=== PATIENT | male | born 1945 | race Caucasian/White ===

== ENCOUNTER 2018-10-24 21:25 | Inpatient (IN) | payer MEDICARE, OTHER ==
[2018-10-24 22:00] LABS: % BASOPHILS 0.1 % (0.0-2.0); % EOSINOPHILS 3.5 % (0.0-5.0); % LYMPHOCYTES 26.9 % (20.0-50.0); % MONOCYTES 5.5 % (2.0-10.0); EOSINOPHILE ABSOLUTE 0.3 Th/cmm (0.1-0.4); HEMATOCRIT 39.3 % (41.0-60); HEMOGLOBIN 13.1 gm/dL (12-16); MEAN CORPUSCULAR HGB CONC 33.4 pg (28.0-36.0); MONOCYTE ABSOLUTE 0.4 Th/cmm (0.3-1.0); NEUTROPHILE ABSOLUTE 4.8 Th/cmm (1.8-8.0); PLATELET COUNT 238 Th/cmm (150-400); RED BLOOD COUNT 4.37 Mil/cmm (3.80-5.80); RED CELL DISTRIBUTION WIDTH 13.2 % (11.5-20.0); WHITE BLOOD COUNT 7.5 Th/cmm (4.8-10.8)
[2018-10-24 22:13] LABS: ANION GAP 12.4 (7.0-16.0); BUN - UREA NITROGEN 19 mg/dL (7-25); CALCIUM SERUM 9.5 mg/dL (8.6-10.3); CARBON DIOXIDE 25.7 mEq/L (21.0-31.0); CHLORIDE 101 mEq/L (98-107); CREATININE - SERUM 0.7 mg/dL (0.7-1.3); GLUCOSE 125 mg/dL (70-105); POTASSIUM SERUM 4.1 mEq/L (3.5-5.1); SODIUM SERUM 135 mEq/L (136-145)
[2018-10-24 22:31] LABS: ACETAMINOPHEN < 10.0 ug/mL (10.0-30.0)
--- NOTE | 2018-10-24 23:36 | ED Physician Chart ---
ED Chief Complaint/HPI - Patient Information Date Seen:: 10/24/18 Time Seen:: 23:32 Chief Complaint:: agitation geropsych History of Present Illness:: 73 yr old male with hx of htn dm cva with agitation for lanny psych pt awake alert denies any complaints Allergies:: Allergies Allergy/AdvReac Type Severity Reaction Status Date / Time No Known Allergies Allergy Verified 10/24/18 21:39 Vitals:: Vital Signs - 8 hr 10/24/18 21:27 Temp 98 F HR 76 RR 16 BP 142/78 O2 Sat % 98 ED Review of Systems - Review of Systems General/Constitutional: No fever, No chills, No weight loss, No weakness, No diaphoresis, No edema, No loss of appetite Skin: No skin lesions, No rash, No bruising Head: No headache, No light-headedness Eyes: No loss of vision, No pain, No diplopia ENT: No earache, No nasal drainage, No sore throat, No tinnitus Neck: No neck pain, No swelling, No thyromegaly, No stiffness, No mass noted Cardio Vascular: No chest pain, No palpitations, No PND, No orthopnea, No edema Pulmonary: No SOB, No cough, No sputum, No wheezing GI: No nausea, No vomiting, No diarrhea, No pain, No melena, No hematochezia, No constipation, No hematemesis G/U: No dysuria, No frequency, No hematuria Musculoskeletal: No bone or joint pain, No back pain, No muscle pain Endocrine: No polyuria, No polydipsia Psychiatric: No prior psych history, No depression, No anxiety, No suicidal ideation Hematopoietic: No bruising, No lymphadenopathy Allergic/Immuno: No urticaria, No angioedema Neurological: No syncope, No focal symptoms, No weakness, No paresthesia, No headache, No seizure, No dizziness, No confusion, No vertigo ED Past Medical History - Past Medical History Past Medical History: HTN, DM, Asthma/COPD, PUD/GERD, Dementia Family Medical History - Family Member Mother History Unknown: Yes ED Physical Exam - Physical Examination General/Constitutional: Awake, Well-developed, well-nourished, Alert, No distress, GCS 15, Non-toxic appearing Head: Atraumatic Eyes: Lids, conjuctiva normal, PERRL, EOMI Skin: Nl inspection, No rash, No skin lesions, No ecchymosis, Well hydrated, No lymphadenopathy ENMT: External ears, nose nl, Nasal exam nl, Lips, teeth, gums nl Neck: Nontender, Full ROM w/o pain, No JVD, No nuchal rigidity, No bruit, No mass, No stridor Respiratory: Nl effort/Exclusion, Clear to Auscultation, No Wheeze/Rhonchi/Rales Cardio Vascular: RRR, No murmur, gallop, rubs, NL S1 S2 GI: No tenderness/rebounding/guarding, No organomegaly, No hernia, Normal BS's, Nondistended, No mass/bruits, No McBurney tenderness : No CVA tenderness Extremities: No tenderness or effusion, No edema, Normal digits & nails Other Extremities comments:: lt hemiparesis Neuro/Psych: Alert/oriented Other Neuro/Psych comments:: lt hemiparesis Misc: Normal back, No paraspinal tenderness ED Labs/Radiology/EKG Results - Lab Results Results: Laboratory Tests 10/24/18 10/24/18 10/24/18 21:55 21:55 21:55 WBC 7.5 RBC 4.37 Hgb 13.1 Hct 39.3 L MCV 90.0 MCH 30.0 MCHC Differential 33.4 RDW 13.2 Plt Count 238 MPV 7.4 Neutrophils % 64.0 Lymphocytes % 26.9 Monocytes % 5.5 Eosinophils % 3.5 Basophils % 0.1 Sodium 135 L Potassium 4.1 Chloride 101 Carbon Dioxide 25.7 Anion Gap 12.4 BUN 19 Creatinine 0.7 Est GFR ( Amer) TNP Est GFR (Non-Af Amer) TNP BUN/Creatinine Ratio 27.1 Glucose 125 H Calcium 9.5 Troponin I 0.01 Salicylates Acetaminophen Ethyl Alcohol 10/24/18 21:55 WBC RBC Hgb Hct MCV MCH MCHC Differential RDW Plt Count MPV Neutrophils % Lymphocytes % Monocytes % Eosinophils % Basophils % Sodium Potassium Chloride Carbon Dioxide Anion Gap BUN Creatinine Est GFR ( Amer) Est GFR (Non-Af Amer) BUN/Creatinine Ratio Glucose Calcium Troponin I Salicylates < 25.0 L Acetaminophen < 10.0 L Ethyl Alcohol < 10 ED Assessment - Assessment General Assessment: lt hemiparesis agitation lanny psych ED Septic Shock - . Is Septic Shock (SBP<90, OR Lactate>4 mmol\L) present?: No - <6hrs of presentation: Vital Signs: Vital Signs - 8 hr 10/24/18 21:27 Temp 98 F HR 76 RR 16 BP 142/78 O2 Sat % 98 ED Reassessment (Disposition) - Reassessment Reassessment:: agitation geropsych - Diagnosis Diagnosis:: as above - Patient Disposition Discharge/Transfer:: Acute Care w/in this hosp Admitted to:: [facility] Condition at Disposition:: Stable
[2018-10-25 00:12] VITALS: BP 132/79
[2018-10-25] MEDS ORDERED: Maalox 30 mL Cup PO PRN (00:15)
[2018-10-25] MEDS ORDERED: Magnesium Hydroxide (MOM) 30 mL UDC PO PRN (00:15)
[2018-10-25 06:06] LABS: CHOLESTEROL 153 mg/dL (<200); HDL -HIGH DENSITY LIPOPROTEIN 35 mg/dL (23-92); TRIGLYCERIDES 158 mg/dL (<150)
[2018-10-25] MEDS ORDERED: Acetaminophen 500 MG TAB PO PRN (06:37)
[2018-10-25] MEDS: Multivitamin Tab PO SCH (08:30)
[2018-10-25] MEDS ORDERED: SODIUM CHLORIDE PO SCH (09:00)
[2018-10-25] MEDS ORDERED: Non-Formulary Item 1 EA (Metformin Hcl [Metformin Hcl] 1,000 MG) PO SCH (09:00)
[2018-10-25] MEDS ORDERED: [UNRECOGNIZED DRUG - OTHER] PO SCH (09:00)
[2018-10-25] MEDS ORDERED: Dextrose 50% 50 mL Abboject IVP PRN (09:27)
[2018-10-25] MEDS ORDERED: GLUCAGON HCl 1 MG KIT IM PRN (09:27)
--- NOTE | 2018-10-25 11:01 | History & Physical ---
ADMIT DATE: 10/25/[address] Patel. CHIEF COMPLAINT: Agitation. HISTORY OF PRESENT ILLNESS: This is a 73-year-old male who is admitted here to the Geropsych Unit due to 1-[facility] the [facility]. PAST MEDICAL HISTORY: Hypertension, diabetes, dyslipidemia, COPD, GERD, and dementia. FAMILY HISTORY: Noncontributory. SOCIAL HISTORY: The patient is a prison resident. REVIEW OF SYSTEMS: GENERAL: Denies any fever and chills. CARDIOVASCULAR: Denies chest pain. RESPIRATORY: Denies shortness of breath. GASTROINTESTINAL: Denies nausea, vomiting, or abdominal pain. GENITOURINARY: Denies increased frequency. NEUROLOGIC: No headaches, seizures or syncope. All systems reviewed and are negative. PHYSICAL EXAMINATION: GENERAL: The patient is an elderly male, awake, alert with confusion, no apparent distress. VITAL SIGNS: Temperature 98.2, heart rate 76, blood pressure 132/79, respirations 19, O2 96%. HEENT: Head; normocephalic, atraumatic. NECK: Supple. No mass. LUNGS: Clear bilaterally. ABDOMEN: Soft, nontender. LABORATORY DATA: WBC 7.5, H and H 13.1 and 39.3, platelet of 238. Sodium 135, potassium 4.1, chloride 101, BUN 19, creatinine 0.7. ASSESSMENT: Agitation, hypertension, diabetes, dyslipidemia, COPD, GERD, and dementia. PLAN: We will continue the patient's home medications, sliding scale per protocol. Fall precautions will be initiated. We will continue to monitor this patient. [facility]# [id number]
[2018-10-25] MEDS: INSULIN LISPRO SLIDING SCALE 100 UNITS/ML UNIT SUBQ SCH ×3 (11:20→21:22)
[2018-10-26] MEDS: INSULIN LISPRO SLIDING SCALE 100 UNITS/ML UNIT SUBQ SCH ×4 (06:31→20:25)
[2018-10-26 07:10] LABS: A1C 6.6 % (4.8-5.6)
[2018-10-26] MEDS: Multivitamin Tab PO SCH (09:00)
--- NOTE | 2018-10-26 13:16 | Internal Medicine Prog Note ---
Internal Medicine Subjective - Subjective Service Date: 10/26/18 Patient seen and examined:: with staff Patient is:: awake, verbal, agitated Patient Complaints of:: other (Agitated and irritated.) Per staff patient has:: no adverse event, no episodes of fall Internal Medicine Objective - Results Result Diagrams: 10/24/18 21:55 10/24/18 21:55 Recent Labs: Laboratory Last Values WBC 7.5 Th/cmm (4.8-10.8) 10/24/18 21:55 RBC 4.37 Mil/cmm (3.80-5.80) 10/24/18 21:55 Hgb 13.1 gm/dL (12-16) 10/24/18 21:55 Hct 39.3 % (41.0-60) L 10/24/18 21:55 MCV 90.0 fl (80-99) 10/24/18 21:55 MCH 30.0 pg (27.0-31.0) 10/24/18 21:55 MCHC Differential 33.4 pg (28.0-36.0) 10/24/18 21:55 RDW 13.2 % (11.5-20.0) 10/24/18 21:55 Plt Count 238 Th/cmm (150-400) 10/24/18 21:55 MPV 7.4 fl 10/24/18 21:55 Neutrophils % 64.0 % (40.0-80.0) 10/24/18 21:55 Lymphocytes % 26.9 % (20.0-50.0) 10/24/18 21:55 Monocytes % 5.5 % (2.0-10.0) 10/24/18 21:55 Eosinophils % 3.5 % (0.0-5.0) 10/24/18 21:55 Basophils % 0.1 % (0.0-2.0) 10/24/18 21:55 Sodium 135 mEq/L (136-145) L 10/24/18 21:55 Potassium 4.1 mEq/L (3.5-5.1) 10/24/18 21:55 Chloride 101 mEq/L (98-107) 10/24/18 21:55 Carbon Dioxide 25.7 mEq/L (21.0-31.0) 10/24/18 21:55 Anion Gap 12.4 (7.0-16.0) 10/24/18 21:55 BUN 19 mg/dL (7-25) 10/24/18 21:55 Creatinine 0.7 mg/dL (0.7-1.3) 10/24/18 21:55 Est GFR ( Amer) TNP 10/24/18 21:55 Est GFR (Non-Af Amer) TNP 10/24/18 21:55 BUN/Creatinine Ratio 27.1 10/24/18 21:55 Glucose 125 mg/dL (70-105) H 10/24/18 21:55 POC Glucose 111 MG/DL (70 - 105) H 10/26/18 11:22 Calcium 9.5 mg/dL (8.6-10.3) 10/24/18 21:55 Troponin I 0.01 ng/mL (0.01-0.05) 10/24/18 21:55 Triglycerides 158 mg/dL (<150) H 10/25/18 00:00 Cholesterol 153 mg/dL (<200) 10/25/18 00:00 LDL Cholesterol Direct 103 mg/dL (75-193) 10/25/18 00:00 HDL Cholesterol 35 mg/dL (23-92) 10/25/18 00:00 Salicylates < 25.0 mg/L (30.0-100.0) L 10/24/18 21:55 Acetaminophen < 10.0 ug/mL (10.0-30.0) L 10/24/18 21:55 Ethyl Alcohol < 10 mg/dL (0-10) 10/24/18 21:55 - Physical Exam Vitals and I&O: Vital Signs Temp 96.9 F 10/26/18 06:54 Pulse 72 10/26/18 09:01 Resp 19 10/26/18 06:54 BP 131/76 10/26/18 09:01 Pulse Ox 97 10/26/18 06:54 Intake & Output 10/25/18 10/26/18 10/26/18 18:59 06:59 18:59 Intake Total 1350 Output Total 1 Balance 1349 Intake: Oral 1350 Output: Stool 1 Active Medications: Current Medications Acetaminophen (Tylenol Extra Strength) 500 mg PO Q4H PRN PRN Reason: Fever > 101 Stop: 12/24/18 06:36 Al Hydrox/Mg Hydrox/Simethicone (Maalox) 30 ml PO Q4HR PRN PRN Reason: GI DISTRESS Stop: 12/24/18 00:14 Amlodipine Besylate (Norvasc) 10 mg PO DAILY [facility]ISA Stop: 12/24/18 08:59 Last Admin: 10/26/18 09:01 Dose: 10 mg Bisacodyl (Dulcolax 10 Mg Supp) 10 mg RC DAILY PRN PRN Reason: Constipation Stop: 12/24/18 06:36 Dextrose (Glutose 40%) 18.75 gm PO PRN PRN PRN Reason: BS Below 70 & not tolerate po Stop: 12/24/18 09:26 Famotidine (Pepcid) 20 mg PO DAILY PARISA Stop: 12/24/18 08:59 Last Admin: 10/26/18 09:01 Dose: 20 mg Glucagon (Glucagen) 1 mg IM PRN PRN PRN Reason: BS Below 70 & not tolerate po Stop: 12/24/18 09:26 Insulin Human Lispro (Humalog Insulin Sliding Scale) 0 units SUBQ ACHS PARISA; Protocol Stop: 12/24/18 11:29 Last Admin: 10/26/18 11:48 Dose: Not Given Lorazepam (Ativan) 0.5 mg PO Q4HR PRN; Protocol PRN Reason: Anxiety Stop: 11/24/18 00:14 Magnesium Hydroxide (Milk Of Magnesia) 30 ml PO HS PRN PRN Reason: Constipation Metformin HCl (Glucophage) 1,000 mg PO BID PARISA Stop: 12/24/18 08:59 Last Admin: 10/26/18 09:01 Dose: 1,000 mg Multivitamins/Vitamin C (Theragran) 1 tab PO DAILY [facility]ISA Stop: 12/24/18 08:59 Last Admin: 10/26/18 09:00 Dose: 1 tab Sitagliptin Phosphate (Januvia) 50 mg PO DAILY [facility] Stop: 12/24/18 08:59 Last Admin: 10/26/18 09:01 Dose: 50 mg Sodium Chloride (Nacl Tab) 2 gm PO TID PARISA Stop: 12/24/18 08:59 Last Admin: 10/26/18 09:01 Dose: 2 gm Tamsulosin HCl (Flomax) 0.4 mg PO BID PARISA Stop: 12/24/18 08:59 Last Admin: 10/26/18 09:01 Dose: 0.4 mg Zolpidem Tartrate (Ambien) 5 mg PO HS PRN PRN Reason: Insomnia Stop: 12/24/18 00:14 Physical Exam: Patient has been irritated and agitated. General: demented HEENT: NC/AT Neck: Supple Lungs: CTAB Cardiovascular: RRR, Normal S1 Abdomen: soft, non-tender Extremities: clear Neurological: no change Internal Medicine Assmt/Plan - Assessment Assessment: Acute Psychosis. Htn. Diabetes. Dyslipidemia. Copd. Gerd. Dementia. - Plan Plan: Continuation of care. Monitor Labs. Continue present meds as directed. Accu-check daily, Continue DM meds as directed. Monitor Diet/Nutritional support. Respiratory treatments and Pulmonary support prn. Supplemental Oxygen prn. Aspiration precaution. Deep suctioning prn. Pysch management per Psych. Pain Management. Physical therapy. Occupational therapy. Safety precaution. Supportive care. Fall precaution, frequent nursing rounds, and as needed restraints to prevent fall. Continue collaborating with consulting specialists, case management and nursing team. Will Monitor patient and continue present care management. Nutritional Asmnt/Malnutr-PDOC - Dietary Evaluation Malnutrition Findings (Please click <Entered> for more info): see orders.
[2018-10-27] MEDS: INSULIN LISPRO SLIDING SCALE 100 UNITS/ML UNIT SUBQ SCH ×4 (06:33→21:10)
--- NOTE | 2018-10-27 07:49 | Psychiatric Evaluation ---
DATE OF SERVICE: 10/27/2018 PSYCHIATRIC INITIAL EVALUATION AND MENTAL STATUS EXAMINATION PATIENT'S AGE: 73. SEX: Male. PHYSICIAN: Dr. Hooks. CHIEF COMPLAINT: Increased agitation. HISTORY OF PRESENT ILLNESS: The patient is a 73-year-old male who was transferred from [facility] because of increased agitation and inability to follow directions. The patient has been more agitated during the last couple of weeks. Also, according to the shelter, the patient has not been able to follow any directions and has been more irritable and more agitated. He also has been more forgetful. The patient also in spite of taking staff trying to redirect him yet he was increasingly agitated and also confused. The patient also is forgetful and he has history of dementia. PAST PSYCHIATRIC HISTORY: The patient has history of dementia. PAST MEDICAL HISTORY: The patient has a history of hypertension, diabetes mellitus, COPD, gastroesophageal reflux disease. SOCIAL HISTORY: The patient lives in [facility]. No known alcohol or street drug use. ALLERGIES: No known allergies. MENTAL STATUS EXAMINATION: The patient appears slightly older than stated age. Anxious. Confused. Restless. Thought processes are disorganized. The patient denies any hallucinations or delusions, but preoccupied and seems to be actively responding to stimuli. The patient denies any suicidal or homicidal ideations. The patient is alert and oriented to the situation, but not to place or person. Impaired immediate and recent memory, but intact remote memories. Poor insight and poor judgment. ASSESSMENT: PRIMARY DIAGNOSIS: Unspecified psychosis. SECONDARY DIAGNOSES: Dementia, moderate to severe, with psychotic features and behavioral disturbances. MEDICAL DIAGNOSES: 1. Hypertension. 2. Diabetes mellitus. 3. Chronic obstructive pulmonary disease. 4. Gastroesophageal reflux disease. TREATMENT PLAN: We will monitor the patient's behavior and condition closely. We will start individual as well as milieu psychotherapy. Also, we will evaluate the use of antipsychotic medications and also medications for dementia. ESTIMATED LENGTH OF STAY: 5-7 days. THE PATIENT'S STRENGTHS AND WEAKNESSES: The patient's general fund of knowledge is fair and he is more cooperative since his arrival to the Geropsych Unit. Weaknesses are his poor impulse control and forgetfulness. AFTER DISCHARGE PLAN: The patient will return to [facility] with plans for outpatient treatment and followup. CRITERIA FOR DISCHARGE: The patient will not be as agitated and will stabilize psychotropic medications and will establish outpatient treatment plans. [facility]# [id number]
--- NOTE | 2018-10-27 08:45 | Progress Notes ---
DATE: 10/27/2018 SUBJECTIVE: Chart was reviewed and the patient interviewed. Also discussed the patient's condition with the staff and reviewed records and labs. The patient seems to be slightly less agitated and seems to be easier to follow directions, but he seems to be more anxious. The patient also still needs redirections and still seems to be confused. The patient also still has episodes of anger and irritability. Otherwise, the patient is taking his medical medications with no problems. ASSESSMENT: The patient is more anxious, but less agitated. TREATMENT PLAN: We will continue to monitor his behavior and his condition closely. We will start the patient on buspirone 5 mg twice a day and we will continue to follow up closely. [facility]# [id number]
[2018-10-27] MEDS: Multivitamin Tab PO SCH (08:56)
--- NOTE | 2018-10-27 16:12 | Internal Medicine Prog Note ---
Internal Medicine Subjective - Subjective Service Date: 10/27/18 Patient seen and examined:: with staff, chart reviewed Patient is:: awake, verbal, agitated Patient Complaints of:: other (Patient is in an agressive mood.) Per staff patient has:: no adverse event, no episodes of fall Internal Medicine Objective - Results Result Diagrams: 10/24/18 21:55 10/24/18 21:55 Recent Labs: Laboratory Last Values WBC 7.5 Th/cmm (4.8-10.8) 10/24/18 21:55 RBC 4.37 Mil/cmm (3.80-5.80) 10/24/18 21:55 Hgb 13.1 gm/dL (12-16) 10/24/18 21:55 Hct 39.3 % (41.0-60) L 10/24/18 21:55 MCV 90.0 fl (80-99) 10/24/18 21:55 MCH 30.0 pg (27.0-31.0) 10/24/18 21:55 MCHC Differential 33.4 pg (28.0-36.0) 10/24/18 21:55 RDW 13.2 % (11.5-20.0) 10/24/18 21:55 Plt Count 238 Th/cmm (150-400) 10/24/18 21:55 MPV 7.4 fl 10/24/18 21:55 Neutrophils % 64.0 % (40.0-80.0) 10/24/18 21:55 Lymphocytes % 26.9 % (20.0-50.0) 10/24/18 21:55 Monocytes % 5.5 % (2.0-10.0) 10/24/18 21:55 Eosinophils % 3.5 % (0.0-5.0) 10/24/18 21:55 Basophils % 0.1 % (0.0-2.0) 10/24/18 21:55 Sodium 135 mEq/L (136-145) L 10/24/18 21:55 Potassium 4.1 mEq/L (3.5-5.1) 10/24/18 21:55 Chloride 101 mEq/L (98-107) 10/24/18 21:55 Carbon Dioxide 25.7 mEq/L (21.0-31.0) 10/24/18 21:55 Anion Gap 12.4 (7.0-16.0) 10/24/18 21:55 BUN 19 mg/dL (7-25) 10/24/18 21:55 Creatinine 0.7 mg/dL (0.7-1.3) 10/24/18 21:55 Est GFR ( Amer) TNP 10/24/18 21:55 Est GFR (Non-Af Amer) TNP 10/24/18 21:55 BUN/Creatinine Ratio 27.1 10/24/18 21:55 Glucose 125 mg/dL (70-105) H 10/24/18 21:55 POC Glucose 105 MG/DL (70 - 105) 10/27/18 11:37 Calcium 9.5 mg/dL (8.6-10.3) 10/24/18 21:55 Troponin I 0.01 ng/mL (0.01-0.05) 10/24/18 21:55 Triglycerides 158 mg/dL (<150) H 10/25/18 00:00 Cholesterol 153 mg/dL (<200) 10/25/18 00:00 LDL Cholesterol Direct 103 mg/dL (75-193) 10/25/18 00:00 HDL Cholesterol 35 mg/dL (23-92) 10/25/18 00:00 Salicylates < 25.0 mg/L (30.0-100.0) L 10/24/18 21:55 Acetaminophen < 10.0 ug/mL (10.0-30.0) L 10/24/18 21:55 Ethyl Alcohol < 10 mg/dL (0-10) 10/24/18 21:55 - Physical Exam Vitals and I&O: Vital Signs Temp 97.4 F 10/27/18 14:00 Pulse 56 10/27/18 14:00 Resp 18 10/27/18 14:00 BP 122/66 10/27/18 14:00 Pulse Ox 97 10/27/18 14:00 Intake & Output 10/26/18 10/27/18 10/27/18 18:59 06:59 18:59 Intake Total 1250 Balance 1250 Intake: Oral 1250 Other: # Bowel Movements 1 Active Medications: Current Medications Acetaminophen (Tylenol Extra Strength) 500 mg PO Q4H PRN PRN Reason: Fever > 101 Stop: 12/24/18 06:36 Al Hydrox/Mg Hydrox/Simethicone (Maalox) 30 ml PO Q4HR PRN PRN Reason: GI DISTRESS Stop: 12/24/18 00:14 Amlodipine Besylate (Norvasc) 10 mg PO DAILY [facility] Stop: 12/24/18 08:59 Last Admin: 10/27/18 08:57 Dose: 10 mg Bisacodyl (Dulcolax 10 Mg Supp) 10 mg RC DAILY PRN PRN Reason: Constipation Stop: 12/24/18 06:36 Dextrose (Glutose 40%) 18.75 gm PO PRN PRN PRN Reason: BS Below 70 & not tolerate po Stop: 12/24/18 09:26 Famotidine (Pepcid) 20 mg PO DAILY [facility] Stop: 12/24/18 08:59 Last Admin: 10/27/18 08:57 Dose: 20 mg Glucagon (Glucagen) 1 mg IM PRN PRN PRN Reason: BS Below 70 & not tolerate po Stop: 12/24/18 09:26 Insulin Human Lispro (Humalog Insulin Sliding Scale) 0 units SUBQ ACHS [facility]; Protocol Stop: 12/24/18 11:29 Last Admin: 10/27/18 11:43 Dose: Not Given Lorazepam (Ativan) 0.5 mg PO Q4HR PRN; Protocol PRN Reason: Anxiety Stop: 11/24/18 00:14 Magnesium Hydroxide (Milk Of Magnesia) 30 ml PO HS PRN PRN Reason: Constipation Metformin HCl (Glucophage) 1,000 mg PO BID PARISA Stop: 12/24/18 08:59 Last Admin: 10/27/18 08:57 Dose: 1,000 mg Multivitamins/Vitamin C (Theragran) 1 tab PO DAILY PARISA Stop: 12/24/18 08:59 Last Admin: 10/27/18 08:56 Dose: 1 tab Sitagliptin Phosphate (Januvia) 50 mg PO DAILY [facility] Stop: 12/24/18 08:59 Last Admin: 10/27/18 08:56 Dose: 50 mg Sodium Chloride (Nacl Tab) 2 gm PO TID PARISA Stop: 12/24/18 08:59 Last Admin: 10/27/18 13:54 Dose: 2 gm Tamsulosin HCl (Flomax) 0.4 mg PO BID [facility] Stop: 12/24/18 08:59 Last Admin: 10/27/18 08:58 Dose: 0.4 mg Zolpidem Tartrate (Ambien) 5 mg PO HS PRN PRN Reason: Insomnia Stop: 12/24/18 00:14 Physical Exam: Patient has been having mood swings, remains irritable and is still very aggressive. General: demented HEENT: NC/AT Neck: Supple Lungs: CTAB Cardiovascular: RRR, Normal S1 Abdomen: soft, non-tender Extremities: clear Neurological: no change Internal Medicine Assmt/Plan - Assessment Assessment: Acute Psychosis. Htn. Diabetes. Dyslipidemia. Copd. Gerd. Dementia. - Plan Plan: Continuation of care. Monitor Labs. Continue present meds as directed. Accu-check daily, Continue DM meds as directed. Monitor Diet/Nutritional support. Respiratory treatments and Pulmonary support prn. Supplemental Oxygen prn. Aspiration precaution. Deep suctioning prn. Pysch management per Psych. Pain Management. Physical therapy. Occupational therapy. Safety precaution. Supportive care. Fall precaution, frequent nursing rounds, and as needed restraints to prevent fall. Continue collaborating with consulting specialists, case management and nursing team. Will Monitor patient and continue present care management. Nutritional Asmnt/Malnutr-PDOC - Dietary Evaluation Malnutrition Findings (Please click <Entered> for more info): Nutritional Asmnt/Malnutrition Start: 10/26/18 14: 08 Text: Status: Complete Freq: Protocol: Document 10/26/18 14:08 ROCHELLE (Rec: 10/26/18 14:11 ROCHELLE [email or web address]) Nutritional Asmnt/Malnutrition Patient General Information Nutritional Screening Moderate Risk Diagnosis Increased confusion Pertinent Medical Hx/Surgical Hx HTN, DM, Dyslipidemia, Asthma/ COPD, PUD/GERD, Dementia Subjective Information Pt is a 73-year-old male from [facility] admitted on 10/24 c /o agitation. Pt is eating 100 % meals since admission per Meal/Nutrition Activity Record . HT: 58 WT: 142 LB (64.54 kg) BMI: 21.59 (Normal) GI: WNL, Soft, Non-Tender BM: Not noted I/O: 1350/1 (1349) Skin: WNL, Intact Vince: 16 Diet Order: CCHO, NCS, MERCEDES Estimated Energy Needs: ( Geriatric, CBW) 4230-3939 kcals (25-30 kcals/ kg) 65-77g Pro (1.0-1.2 g/kg) 8568-9053 ml (25-30 ml/kg) Pt is eating 100% of meals Per Meal/Nutrition Activity Record. Dietary is currently providing an estimated 2187 kcals and 123 gm Pro to meet 100% kcal and 100+% Pro needs. Pertinent Medications Maalox (PRN), Dulcolax (PRN), Glutose 40% (PRN), Pepcid, Glucagen (PRN), INS-SS, MOM ( PRN), Glucophage, Theragran, Nacl Tab Pertinent Labs 10/26: POC Glucose (last 24 hours) 105, 96, 108, 104, 111 10/24: Hgb/Hct 13.1/39.3 Nutritional Hx/Data Height 1.73 m Height (Calculated Centimeters) 172.7 Current Weight (lbs) 64.41 kg Weight (Calculated Kilograms) 64.4 Weight (Calculated Grams) 97111.1 [place] Body Weight 68.4 kg % [place] Body Weight 94 Body Mass Index (BMI) 21.6 Weight Status Approriate GI Symptoms GI Symptoms None Last BM Not noted Skin Integrity/Comment: WNL, Intact Vince: 16 Current %PO Good (75-100%) Estimated Nutritional Goals BEE in Kcals: Using Current wt Calories/Kcals/Kg 25-30 Kcals Calculated 8897-7871 Protein: Using Current wt Protein g/k.0-1.2 Protein Calculated 65-77 Fluid: ml 4588-6759 ml (25-30 ml/kg) Nutritional Problem 1. Problem Problem Altered Nutrition related labs Etiology r/t endocrine dysfunction Signs/Symptoms: aeb HX of DM Malnutrition Related to Morbid Obesity Malnutrition related to morbid obesity No Intervention/Recommendation Comments 1.Continue with CCHO, NCS, MERCEDES diet as ordered. 2.Continue on anti- hyperglycemic meds for glucose control per MD order. Expected Outcomes/Goals Expected Outcomes/Goals 1.PO intake to continue to meet 75% of nutritional needs. 2.Monitor PO intake, wt, skin integrity, and nutrition related labs to trend WNL. 3.F/U as low risk in 7 days,
--- NOTE | 2018-10-27 19:34 | Internal Medicine Prog Note ---
Internal Medicine Subjective - Subjective Service Date: 10/27/18 Patient seen and examined:: with staff Patient is:: awake, verbal, agitated Patient Complaints of:: other (In agitated mood.) Per staff patient has:: no adverse event, no episodes of fall Internal Medicine Objective - Results Result Diagrams: 10/24/18 21:55 10/24/18 21:55 Recent Labs: Laboratory Last Values WBC 7.5 Th/cmm (4.8-10.8) 10/24/18 21:55 RBC 4.37 Mil/cmm (3.80-5.80) 10/24/18 21:55 Hgb 13.1 gm/dL (12-16) 10/24/18 21:55 Hct 39.3 % (41.0-60) L 10/24/18 21:55 MCV 90.0 fl (80-99) 10/24/18 21:55 MCH 30.0 pg (27.0-31.0) 10/24/18 21:55 MCHC Differential 33.4 pg (28.0-36.0) 10/24/18 21:55 RDW 13.2 % (11.5-20.0) 10/24/18 21:55 Plt Count 238 Th/cmm (150-400) 10/24/18 21:55 MPV 7.4 fl 10/24/18 21:55 Neutrophils % 64.0 % (40.0-80.0) 10/24/18 21:55 Lymphocytes % 26.9 % (20.0-50.0) 10/24/18 21:55 Monocytes % 5.5 % (2.0-10.0) 10/24/18 21:55 Eosinophils % 3.5 % (0.0-5.0) 10/24/18 21:55 Basophils % 0.1 % (0.0-2.0) 10/24/18 21:55 Sodium 135 mEq/L (136-145) L 10/24/18 21:55 Potassium 4.1 mEq/L (3.5-5.1) 10/24/18 21:55 Chloride 101 mEq/L (98-107) 10/24/18 21:55 Carbon Dioxide 25.7 mEq/L (21.0-31.0) 10/24/18 21:55 Anion Gap 12.4 (7.0-16.0) 10/24/18 21:55 BUN 19 mg/dL (7-25) 10/24/18 21:55 Creatinine 0.7 mg/dL (0.7-1.3) 10/24/18 21:55 Est GFR ( Amer) TNP 10/24/18 21:55 Est GFR (Non-Af Amer) TNP 10/24/18 21:55 BUN/Creatinine Ratio 27.1 10/24/18 21:55 Glucose 125 mg/dL (70-105) H 10/24/18 21:55 POC Glucose 121 MG/DL (70 - 105) H 10/27/18 16:51 Calcium 9.5 mg/dL (8.6-10.3) 10/24/18 21:55 Troponin I 0.01 ng/mL (0.01-0.05) 10/24/18 21:55 Triglycerides 158 mg/dL (<150) H 10/25/18 00:00 Cholesterol 153 mg/dL (<200) 10/25/18 00:00 LDL Cholesterol Direct 103 mg/dL (75-193) 10/25/18 00:00 HDL Cholesterol 35 mg/dL (23-92) 10/25/18 00:00 Salicylates < 25.0 mg/L (30.0-100.0) L 10/24/18 21:55 Acetaminophen < 10.0 ug/mL (10.0-30.0) L 10/24/18 21:55 Ethyl Alcohol < 10 mg/dL (0-10) 10/24/18 21:55 - Physical Exam Vitals and I&O: Vital Signs Temp 97.4 F 10/27/18 14:00 Pulse 56 10/27/18 14:00 Resp 18 10/27/18 14:00 BP 122/66 10/27/18 14:00 Pulse Ox 97 10/27/18 14:00 Intake & Output 10/27/18 10/27/18 10/28/18 06:59 18:59 06:59 Intake Total 800 Balance 800 Intake: Oral 800 Other: # Voids 3 # Bowel Movements 0 Active Medications: Current Medications Acetaminophen (Tylenol Extra Strength) 500 mg PO Q4H PRN PRN Reason: Fever > 101 Stop: 12/24/18 06:36 Al Hydrox/Mg Hydrox/Simethicone (Maalox) 30 ml PO Q4HR PRN PRN Reason: GI DISTRESS Stop: 12/24/18 00:14 Amlodipine Besylate (Norvasc) 10 mg PO DAILY PARISA Stop: 12/24/18 08:59 Last Admin: 10/27/18 08:57 Dose: 10 mg Bisacodyl (Dulcolax 10 Mg Supp) 10 mg RC DAILY PRN PRN Reason: Constipation Stop: 12/24/18 06:36 Dextrose (Glutose 40%) 18.75 gm PO PRN PRN PRN Reason: BS Below 70 & not tolerate po Stop: 12/24/18 09:26 Famotidine (Pepcid) 20 mg PO DAILY PARISA Stop: 12/24/18 08:59 Last Admin: 10/27/18 08:57 Dose: 20 mg Glucagon (Glucagen) 1 mg IM PRN PRN PRN Reason: BS Below 70 & not tolerate po Stop: 12/24/18 09:26 Insulin Human Lispro (Humalog Insulin Sliding Scale) 0 units SUBQ ACHS PARISA; Protocol Stop: 12/24/18 11:29 Last Admin: 10/27/18 17:12 Dose: Not Given Lorazepam (Ativan) 0.5 mg PO Q4HR PRN; Protocol PRN Reason: Anxiety Stop: 11/24/18 00:14 Magnesium Hydroxide (Milk Of Magnesia) 30 ml PO HS PRN PRN Reason: Constipation Metformin HCl (Glucophage) 1,000 mg PO BID PARISA Stop: 12/24/18 08:59 Last Admin: 10/27/18 17:12 Dose: 1,000 mg Multivitamins/Vitamin C (Theragran) 1 tab PO DAILY PARISA Stop: 12/24/18 08:59 Last Admin: 10/27/18 08:56 Dose: 1 tab Sitagliptin Phosphate (Januvia) 50 mg PO DAILY PARISA Stop: 12/24/18 08:59 Last Admin: 10/27/18 08:56 Dose: 50 mg Sodium Chloride (Nacl Tab) 2 gm PO TID PARISA Stop: 12/24/18 08:59 Last Admin: 10/27/18 13:54 Dose: 2 gm Tamsulosin HCl (Flomax) 0.4 mg PO BID PARISA Stop: 12/24/18 08:59 Last Admin: 10/27/18 17:12 Dose: 0.4 mg Zolpidem Tartrate (Ambien) 5 mg PO HS PRN PRN Reason: Insomnia Stop: 12/24/18 00:14 Physical Exam: Patient remains agitated and aggressive. General: demented HEENT: NC/AT Neck: Supple Lungs: CTAB Cardiovascular: RRR, Normal S1 Abdomen: soft, non-tender Extremities: clear Neurological: no change Internal Medicine Assmt/Plan - Assessment Assessment: Acute Psychosis. Htn. Diabetes. Dyslipidemia. Copd. Gerd. Dementia. - Plan Plan: Continuation of care. Monitor Labs. Continue present meds as directed. Accu-check daily, Continue DM meds as directed. Monitor Diet/Nutritional support. Respiratory treatments and Pulmonary support prn. Supplemental Oxygen prn. Aspiration precaution. Deep suctioning prn. Pysch management per Psych. Pain Management. Physical therapy. Occupational therapy. Safety precaution. Supportive care. Fall precaution, frequent nursing rounds, and as needed restraints to prevent fall. Continue collaborating with consulting specialists, case management and nursing team. Will Monitor patient and continue present care management. Nutritional Asmnt/Malnutr-PDOC - Dietary Evaluation Malnutrition Findings (Please click <Entered> for more info): Nutritional Asmnt/Malnutrition Start: 10/26/18 14: 08 Text: Status: Complete Freq: Protocol: Document 10/26/18 14:08 ROCHELLE (Rec: 10/26/18 14:11 [email or web address]) Nutritional Asmnt/Malnutrition Patient General Information Nutritional Screening Moderate Risk Diagnosis Increased confusion Pertinent Medical Hx/Surgical Hx HTN, DM, Dyslipidemia, Asthma/ COPD, PUD/GERD, Dementia Subjective Information Pt is a 73-year-old male from senior care admitted on 10/24 c /o agitation. Pt is eating 100 % meals since admission per Meal/Nutrition Activity Record . HT: 58 WT: 142 LB (64.54 kg) BMI: 21.59 (Normal) GI: WNL, Soft, Non-Tender BM: Not noted I/O: 1350/1 (1349) Skin: WNL, Intact Vince: 16 Diet Order: CCHO, NCS, MERCEDES Estimated Energy Needs: ( Geriatric, CBW) 0365-2938 kcals (25-30 kcals/ kg) 65-77g Pro (1.0-1.2 g/kg) 0413-0525 ml (25-30 ml/kg) Pt is eating 100% of meals Per Meal/Nutrition Activity Record. Dietary is currently providing an estimated 2187 kcals and 123 gm Pro to meet 100% kcal and 100+% Pro needs. Pertinent Medications Maalox (PRN), Dulcolax (PRN), Glutose 40% (PRN), Pepcid, Glucagen (PRN), INS-SS, MOM ( PRN), Glucophage, Theragran, Nacl Tab Pertinent Labs 10/26: POC Glucose (last 24 hours) 105, 96, 108, 104, 111 10/24: Hgb/Hct 13.1/39.3 Nutritional Hx/Data Height 1.73 m Height (Calculated Centimeters) 172.7 Current Weight (lbs) 64.41 kg Weight (Calculated Kilograms) 64.4 Weight (Calculated Grams) 29797.1 [place] Body Weight 68.4 kg % [place] Body Weight 94 Body Mass Index (BMI) 21.6 Weight Status Approriate GI Symptoms GI Symptoms None Last BM Not noted Skin Integrity/Comment: WNL, Intact Vince: 16 Current %PO Good (75-100%) Estimated Nutritional Goals BEE in Kcals: Using Current wt Calories/Kcals/Kg 25-30 Kcals Calculated 1369-3777 Protein: Using Current wt Protein g/k.0-1.2 Protein Calculated 65-77 Fluid: ml 8740-0065 ml (25-30 ml/kg) Nutritional Problem 1. Problem Problem Altered Nutrition related labs Etiology r/t endocrine dysfunction Signs/Symptoms: aeb HX of DM Malnutrition Related to Morbid Obesity Malnutrition related to morbid obesity No Intervention/Recommendation Comments 1.Continue with CCHO, NCS, MERCEDES diet as ordered. 2.Continue on anti- hyperglycemic meds for glucose control per MD order. Expected Outcomes/Goals Expected Outcomes/Goals 1.PO intake to continue to meet 75% of nutritional needs. 2.Monitor PO intake, wt, skin integrity, and nutrition related labs to trend WNL. 3.F/U as low risk in 7 days,
--- NOTE | 2018-10-27 22:26 | Progress Notes ---
DATE: SUBJECTIVE: Chart reviewed and the patient interviewed. Also discussed the patient's condition with the staff and reviewed records and labs. The patient is still anxious and withdrawn. The patient also is still pleasantly confused and laughing inappropriately. The patient also is still interacting minimally with others and he still needs close monitoring. He also still wants to be left alone. Otherwise, the patient is compliant with taking his medications with no side effects of all medications. ASSESSMENT: The patient is still agitated, but seems to be slightly calmer. TREATMENT PLAN: We will continue to monitor his behavior and condition closely. Also, continue to work on poor impulse control and also ineffective coping. [facility]# [id number]
[2018-10-28] MEDS: INSULIN LISPRO SLIDING SCALE 100 UNITS/ML UNIT SUBQ SCH ×4 (06:25→21:10)
[2018-10-28] MEDS: Multivitamin Tab PO SCH (08:18)
--- NOTE | 2018-10-28 08:40 | Progress Notes ---
DATE: 10/28/2018 SUBJECTIVE: Chart was reviewed and the patient interviewed. Also discussed the patient's condition with the staff and reviewed records and labs. The patient continued to be confused and anxious and is still in irritable mood. The patient also is still interacting minimally with others. Also, decreased behavioral problems and the patient is pleasantly confused. Otherwise, the patient is compliant with taking medications with no side effects of medications. He still needs lots of assistance and help with directions and things that he is supposed to do. ASSESSMENT: The patient is still psychotic. TREATMENT PLAN: Continue to monitor behavior and continue working on his psychosis and confusion and continue adjusting psychotropic medications. JOB# [id number]
--- NOTE | 2018-10-28 11:37 | Internal Medicine Prog Note ---
Internal Medicine Subjective - Subjective Service Date: 10/28/18 Patient seen and examined:: with staff Patient is:: awake, verbal, agitated Patient Complaints of:: other (Patient is in an agressive mood.) Per staff patient has:: no adverse event, no episodes of fall Internal Medicine Objective - Results Result Diagrams: 10/24/18 21:55 10/24/18 21:55 Recent Labs: Laboratory Last Values WBC 7.5 Th/cmm (4.8-10.8) 10/24/18 21:55 RBC 4.37 Mil/cmm (3.80-5.80) 10/24/18 21:55 Hgb 13.1 gm/dL (12-16) 10/24/18 21:55 Hct 39.3 % (41.0-60) L 10/24/18 21:55 MCV 90.0 fl (80-99) 10/24/18 21:55 MCH 30.0 pg (27.0-31.0) 10/24/18 21:55 MCHC Differential 33.4 pg (28.0-36.0) 10/24/18 21:55 RDW 13.2 % (11.5-20.0) 10/24/18 21:55 Plt Count 238 Th/cmm (150-400) 10/24/18 21:55 MPV 7.4 fl 10/24/18 21:55 Neutrophils % 64.0 % (40.0-80.0) 10/24/18 21:55 Lymphocytes % 26.9 % (20.0-50.0) 10/24/18 21:55 Monocytes % 5.5 % (2.0-10.0) 10/24/18 21:55 Eosinophils % 3.5 % (0.0-5.0) 10/24/18 21:55 Basophils % 0.1 % (0.0-2.0) 10/24/18 21:55 Sodium 135 mEq/L (136-145) L 10/24/18 21:55 Potassium 4.1 mEq/L (3.5-5.1) 10/24/18 21:55 Chloride 101 mEq/L (98-107) 10/24/18 21:55 Carbon Dioxide 25.7 mEq/L (21.0-31.0) 10/24/18 21:55 Anion Gap 12.4 (7.0-16.0) 10/24/18 21:55 BUN 19 mg/dL (7-25) 10/24/18 21:55 Creatinine 0.7 mg/dL (0.7-1.3) 10/24/18 21:55 Est GFR ( Amer) TNP 10/24/18 21:55 Est GFR (Non-Af Amer) TNP 10/24/18 21:55 BUN/Creatinine Ratio 27.1 10/24/18 21:55 Glucose 125 mg/dL (70-105) H 10/24/18 21:55 POC Glucose 89 MG/DL (70 - 105) 10/28/18 06:10 Calcium 9.5 mg/dL (8.6-10.3) 10/24/18 21:55 Troponin I 0.01 ng/mL (0.01-0.05) 10/24/18 21:55 Triglycerides 158 mg/dL (<150) H 10/25/18 00:00 Cholesterol 153 mg/dL (<200) 10/25/18 00:00 LDL Cholesterol Direct 103 mg/dL (75-193) 10/25/18 00:00 HDL Cholesterol 35 mg/dL (23-92) 10/25/18 00:00 Salicylates < 25.0 mg/L (30.0-100.0) L 10/24/18 21:55 Acetaminophen < 10.0 ug/mL (10.0-30.0) L 10/24/18 21:55 Ethyl Alcohol < 10 mg/dL (0-10) 10/24/18 21:55 - Physical Exam Vitals and I&O: Vital Signs Temp 98.1 F 10/28/18 04:53 Pulse 62 10/28/18 08:17 Resp 18 10/28/18 08:00 BP 124/61 10/28/18 08:17 Pulse Ox 98 10/28/18 04:53 Intake & Output 10/27/18 10/28/18 10/28/18 18:59 06:59 18:59 Intake Total 800 480 Balance 800 480 Intake: Oral 800 480 Other: # Voids 3 2 # Bowel Movements 0 Active Medications: Current Medications Acetaminophen (Tylenol Extra Strength) 500 mg PO Q4H PRN PRN Reason: Fever > 101 Stop: 12/24/18 06:36 Al Hydrox/Mg Hydrox/Simethicone (Maalox) 30 ml PO Q4HR PRN PRN Reason: GI DISTRESS Stop: 12/24/18 00:14 Amlodipine Besylate (Norvasc) 10 mg PO DAILY [facility] Stop: 12/24/18 08:59 Last Admin: 10/28/18 08:17 Dose: 10 mg Bisacodyl (Dulcolax 10 Mg Supp) 10 mg RC DAILY PRN PRN Reason: Constipation Stop: 12/24/18 06:36 Dextrose (Glutose 40%) 18.75 gm PO PRN PRN PRN Reason: BS Below 70 & not tolerate po Stop: 12/24/18 09:26 Famotidine (Pepcid) 20 mg PO DAILY PARISA Stop: 12/24/18 08:59 Last Admin: 10/28/18 08:18 Dose: 20 mg Glucagon (Glucagen) 1 mg IM PRN PRN PRN Reason: BS Below 70 & not tolerate po Stop: 12/24/18 09:26 Insulin Human Lispro (Humalog Insulin Sliding Scale) 0 units SUBQ ACHS PARISA; Protocol Stop: 12/24/18 11:29 Last Admin: 10/27/18 21:10 Dose: Not Given Lorazepam (Ativan) 0.5 mg PO Q4HR PRN; Protocol PRN Reason: Anxiety Stop: 11/24/18 00:14 Magnesium Hydroxide (Milk Of Magnesia) 30 ml PO HS PRN PRN Reason: Constipation Metformin HCl (Glucophage) 1,000 mg PO BID PARISA Stop: 12/24/18 08:59 Last Admin: 10/28/18 08:18 Dose: 1,000 mg Multivitamins/Vitamin C (Theragran) 1 tab PO DAILY PARISA Stop: 12/24/18 08:59 Last Admin: 10/28/18 08:18 Dose: 1 tab Sitagliptin Phosphate (Januvia) 50 mg PO DAILY [facility] Stop: 12/24/18 08:59 Last Admin: 10/28/18 08:19 Dose: 50 mg Sodium Chloride (Nacl Tab) 2 gm PO TID PARISA Stop: 12/24/18 08:59 Last Admin: 10/28/18 08:18 Dose: 2 gm Tamsulosin HCl (Flomax) 0.4 mg PO BID PARISA Stop: 12/24/18 08:59 Last Admin: 10/28/18 08:19 Dose: 0.4 mg Zolpidem Tartrate (Ambien) 5 mg PO HS PRN PRN Reason: Insomnia Stop: 12/24/18 00:14 Physical Exam: Patient is irritated. General: demented HEENT: NC/AT Neck: Supple Lungs: CTAB Cardiovascular: RRR, Normal S1 Abdomen: soft, non-tender Extremities: clear Neurological: no change Internal Medicine Assmt/Plan - Assessment Assessment: Dementia. Acute Psychosis. Htn. DM. Dyslipidemia. Copd. Gerd. - Plan Plan: Continuation of care. Monitor Labs. Continue present meds as directed. Monitor vitals, continue B/P meds.. Monitor Diet/Nutritional support. Psych anagement per Psyche. Pain Management. Physical therapy. Occupational therapy. Safety precaution. Supportive care. Fall precaution, frequent nursing rounds, and as needed restraints to prevent fall. Will Monitor patient and continue current treatment plan as ordered. Nutritional Asmnt/Malnutr-PDOC - Dietary Evaluation Malnutrition Findings (Please click <Entered> for more info): Nutritional Asmnt/Malnutrition Start: 10/26/18 14: 08 Text: Status: Complete Freq: Protocol: Document 10/26/18 14:08 ROCHELLE (Rec: 10/26/18 14:11 ROCHELLE [email or web address]) Nutritional Asmnt/Malnutrition Patient General Information Nutritional Screening Moderate Risk Diagnosis Increased confusion Pertinent Medical Hx/Surgical Hx HTN, DM, Dyslipidemia, Asthma/ COPD, PUD/GERD, Dementia Subjective Information Pt is a 73-year-old male from longterm admitted on 10/24 c /o agitation. Pt is eating 100 % meals since admission per Meal/Nutrition Activity Record . HT: 58 WT: 142 LB (64.54 kg) BMI: 21.59 (Normal) GI: WNL, Soft, Non-Tender BM: Not noted I/O: 1350/1 (1349) Skin: WNL, Intact Vince: 16 Diet Order: CCHO, NCS, MERCEDES Estimated Energy Needs: ( Geriatric, CBW) 6480-0272 kcals (25-30 kcals/ kg) 65-77g Pro (1.0-1.2 g/kg) 6206-2798 ml (25-30 ml/kg) Pt is eating 100% of meals Per Meal/Nutrition Activity Record. Dietary is currently providing an estimated 2187 kcals and 123 gm Pro to meet 100% kcal and 100+% Pro needs. Pertinent Medications Maalox (PRN), Dulcolax (PRN), Glutose 40% (PRN), Pepcid, Glucagen (PRN), INS-SS, MOM ( PRN), Glucophage, Theragran, Nacl Tab Pertinent Labs 10/26: POC Glucose (last 24 hours) 105, 96, 108, 104, 111 10/24: Hgb/Hct 13.1/39.3 Nutritional Hx/Data Height 1.73 m Height (Calculated Centimeters) 172.7 Current Weight (lbs) 64.41 kg Weight (Calculated Kilograms) 64.4 Weight (Calculated Grams) 53898.1 [place] Body Weight 68.4 kg % [place] Body Weight 94 Body Mass Index (BMI) 21.6 Weight Status Approriate GI Symptoms GI Symptoms None Last BM Not noted Skin Integrity/Comment: WNL, Intact Vince: 16 Current %PO Good (75-100%) Estimated Nutritional Goals BEE in Kcals: Using Current wt Calories/Kcals/Kg 25-30 Kcals Calculated 8392-3131 Protein: Using Current wt Protein g/k.0-1.2 Protein Calculated 65-77 Fluid: ml 1839-6906 ml (25-30 ml/kg) Nutritional Problem 1. Problem Problem Altered Nutrition related labs Etiology r/t endocrine dysfunction Signs/Symptoms: aeb HX of DM Malnutrition Related to Morbid Obesity Malnutrition related to morbid obesity No Intervention/Recommendation Comments 1.Continue with CCHO, NCS, MERCEDES diet as ordered. 2.Continue on anti- hyperglycemic meds for glucose control per MD order. Expected Outcomes/Goals Expected Outcomes/Goals 1.PO intake to continue to meet 75% of nutritional needs. 2.Monitor PO intake, wt, skin integrity, and nutrition related labs to trend WNL. 3.F/U as low risk in 7 days,
[2018-10-29] MEDS: INSULIN LISPRO SLIDING SCALE 100 UNITS/ML UNIT SUBQ SCH ×4 (06:52→21:00)
[2018-10-29] MEDS: Multivitamin Tab PO SCH (08:34)
--- NOTE | 2018-10-29 11:21 | Internal Medicine Prog Note ---
Internal Medicine Subjective - Subjective Service Date: 10/29/18 Patient seen and examined:: with staff Patient is:: awake, verbal, agitated Patient Complaints of:: other (Patient is in an agressive mood.) Per staff patient has:: no adverse event, no episodes of fall Internal Medicine Objective - Results Result Diagrams: 10/24/18 21:55 10/24/18 21:55 Recent Labs: Laboratory Last Values WBC 7.5 Th/cmm (4.8-10.8) 10/24/18 21:55 RBC 4.37 Mil/cmm (3.80-5.80) 10/24/18 21:55 Hgb 13.1 gm/dL (12-16) 10/24/18 21:55 Hct 39.3 % (41.0-60) L 10/24/18 21:55 MCV 90.0 fl (80-99) 10/24/18 21:55 MCH 30.0 pg (27.0-31.0) 10/24/18 21:55 MCHC Differential 33.4 pg (28.0-36.0) 10/24/18 21:55 RDW 13.2 % (11.5-20.0) 10/24/18 21:55 Plt Count 238 Th/cmm (150-400) 10/24/18 21:55 MPV 7.4 fl 10/24/18 21:55 Neutrophils % 64.0 % (40.0-80.0) 10/24/18 21:55 Lymphocytes % 26.9 % (20.0-50.0) 10/24/18 21:55 Monocytes % 5.5 % (2.0-10.0) 10/24/18 21:55 Eosinophils % 3.5 % (0.0-5.0) 10/24/18 21:55 Basophils % 0.1 % (0.0-2.0) 10/24/18 21:55 Sodium 135 mEq/L (136-145) L 10/24/18 21:55 Potassium 4.1 mEq/L (3.5-5.1) 10/24/18 21:55 Chloride 101 mEq/L (98-107) 10/24/18 21:55 Carbon Dioxide 25.7 mEq/L (21.0-31.0) 10/24/18 21:55 Anion Gap 12.4 (7.0-16.0) 10/24/18 21:55 BUN 19 mg/dL (7-25) 10/24/18 21:55 Creatinine 0.7 mg/dL (0.7-1.3) 10/24/18 21:55 Est GFR ( Amer) TNP 10/24/18 21:55 Est GFR (Non-Af Amer) TNP 10/24/18 21:55 BUN/Creatinine Ratio 27.1 10/24/18 21:55 Glucose 125 mg/dL (70-105) H 10/24/18 21:55 POC Glucose 90 MG/DL (70 - 105) 10/29/18 06:06 Calcium 9.5 mg/dL (8.6-10.3) 10/24/18 21:55 Troponin I 0.01 ng/mL (0.01-0.05) 10/24/18 21:55 Triglycerides 158 mg/dL (<150) H 10/25/18 00:00 Cholesterol 153 mg/dL (<200) 10/25/18 00:00 LDL Cholesterol Direct 103 mg/dL (75-193) 10/25/18 00:00 HDL Cholesterol 35 mg/dL (23-92) 10/25/18 00:00 Salicylates < 25.0 mg/L (30.0-100.0) L 10/24/18 21:55 Acetaminophen < 10.0 ug/mL (10.0-30.0) L 10/24/18 21:55 Ethyl Alcohol < 10 mg/dL (0-10) 10/24/18 21:55 - Physical Exam Vitals and I&O: Vital Signs Temp 97.6 F 10/29/18 04:55 Pulse 66 10/29/18 08:34 Resp 18 10/29/18 04:55 BP 132/72 10/29/18 08:34 Pulse Ox 96 10/29/18 04:55 Intake & Output 10/28/18 10/29/18 10/29/18 18:59 06:59 18:59 Intake Total 480 Balance 480 Intake: Oral 480 Other: # Voids 2 Active Medications: Current Medications Acetaminophen (Tylenol Extra Strength) 500 mg PO Q4H PRN PRN Reason: Fever > 101 Stop: 12/24/18 06:36 Al Hydrox/Mg Hydrox/Simethicone (Maalox) 30 ml PO Q4HR PRN PRN Reason: GI DISTRESS Stop: 12/24/18 00:14 Amlodipine Besylate (Norvasc) 10 mg PO DAILY [facility] Stop: 12/24/18 08:59 Last Admin: 10/29/18 08:34 Dose: 10 mg Bisacodyl (Dulcolax 10 Mg Supp) 10 mg RC DAILY PRN PRN Reason: Constipation Stop: 12/24/18 06:36 Dextrose (Glutose 40%) 18.75 gm PO PRN PRN PRN Reason: BS Below 70 & not tolerate po Stop: 12/24/18 09:26 Last Admin: 10/28/18 21:14 Dose: 18.75 gm Famotidine (Pepcid) 20 mg PO DAILY [facility] Stop: 12/24/18 08:59 Last Admin: 10/29/18 08:34 Dose: 20 mg Glucagon (Glucagen) 1 mg IM PRN PRN PRN Reason: BS Below 70 & not tolerate po Stop: 12/24/18 09:26 Insulin Human Lispro (Humalog Insulin Sliding Scale) 0 units SUBQ ACHS PAR[facility]; Protocol Stop: 12/24/18 11:29 Last Admin: 10/29/18 06:52 Dose: Not Given Lorazepam (Ativan) 0.5 mg PO Q4HR PRN; Protocol PRN Reason: Anxiety Stop: 11/24/18 00:14 Magnesium Hydroxide (Milk Of Magnesia) 30 ml PO HS PRN PRN Reason: Constipation Metformin HCl (Glucophage) 1,000 mg PO BID [facility] Stop: 12/24/18 08:59 Last Admin: 10/29/18 08:34 Dose: 1,000 mg Multivitamins/Vitamin C (Theragran) 1 tab PO DAILY [facility] Stop: 12/24/18 08:59 Last Admin: 10/29/18 08:34 Dose: 1 tab Sitagliptin Phosphate (Januvia) 50 mg PO DAILY [facility] Stop: 12/24/18 08:59 Last Admin: 10/29/18 08:33 Dose: 50 mg Sodium Chloride (Nacl Tab) 2 gm PO TID [facility] Stop: 12/24/18 08:59 Last Admin: 10/29/18 08:33 Dose: 2 gm Tamsulosin HCl (Flomax) 0.4 mg PO BID [facility] Stop: 12/24/18 08:59 Last Admin: 10/29/18 08:33 Dose: 0.4 mg Zolpidem Tartrate (Ambien) 5 mg PO HS PRN PRN Reason: Insomnia Stop: 12/24/18 00:14 Physical Exam: Patient is very agitated and irritated. General: demented HEENT: NC/AT Neck: Supple Lungs: CTAB Cardiovascular: RRR, Normal S1 Abdomen: soft, non-tender Extremities: clear Neurological: no change Internal Medicine Assmt/Plan - Assessment Assessment: Dementia. Acute Psychosis. Htn. DM. Dyslipidemia. Copd. Gerd. - Plan Plan: Continuation of care. Monitor Labs. Continue present meds as directed. Monitor vitals, continue B/P meds.. Monitor Diet/Nutritional support. Psych anagement per Psyche. Pain Management. Physical therapy. Occupational therapy. Safety precaution. Supportive care. Fall precaution, frequent nursing rounds, and as needed restraints to prevent fall. Will Monitor patient and continue present care management. Nutritional Asmnt/Malnutr-PDOC - Dietary Evaluation Malnutrition Findings (Please click <Entered> for more info): Nutritional Asmnt/Malnutrition Start: 10/26/18 14: 08 Text: Status: Complete Freq: Protocol: Document 10/26/18 14:08 ROCHELLE (Rec: 10/26/18 14:11 [email or web address]) Nutritional Asmnt/Malnutrition Patient General Information Nutritional Screening Moderate Risk Diagnosis Increased confusion Pertinent Medical Hx/Surgical Hx HTN, DM, Dyslipidemia, Asthma/ COPD, PUD/GERD, Dementia Subjective Information Pt is a 73-year-old male from longterm admitted on 10/24 c /o agitation. Pt is eating 100 % meals since admission per Meal/Nutrition Activity Record . HT: 58 WT: 142 LB (64.54 kg) BMI: 21.59 (Normal) GI: WNL, Soft, Non-Tender BM: Not noted I/O: 1350/1 (1349) Skin: WNL, Intact Vince: 16 Diet Order: CCHO, NCS, MERCEDES Estimated Energy Needs: ( Geriatric, CBW) 3706-1658 kcals (25-30 kcals/ kg) 65-77g Pro (1.0-1.2 g/kg) 6545-6555 ml (25-30 ml/kg) Pt is eating 100% of meals Per Meal/Nutrition Activity Record. Dietary is currently providing an estimated 2187 kcals and 123 gm Pro to meet 100% kcal and 100+% Pro needs. Pertinent Medications Maalox (PRN), Dulcolax (PRN), Glutose 40% (PRN), Pepcid, Glucagen (PRN), INS-SS, MOM ( PRN), Glucophage, Theragran, Nacl Tab Pertinent Labs 10/26: POC Glucose (last 24 hours) 105, 96, 108, 104, 111 10/24: Hgb/Hct 13.1/39.3 Nutritional Hx/Data Height 1.73 m Height (Calculated Centimeters) 172.7 Current Weight (lbs) 64.41 kg Weight (Calculated Kilograms) 64.4 Weight (Calculated Grams) 31714.1 [place] Body Weight 68.4 kg % [place] Body Weight 94 Body Mass Index (BMI) 21.6 Weight Status Approriate GI Symptoms GI Symptoms None Last BM Not noted Skin Integrity/Comment: WNL, Intact Vince: 16 Current %PO Good (75-100%) Estimated Nutritional Goals BEE in Kcals: Using Current wt Calories/Kcals/Kg 25-30 Kcals Calculated 4567-5690 Protein: Using Current wt Protein g/k.0-1.2 Protein Calculated 65-77 Fluid: ml 4112-3693 ml (25-30 ml/kg) Nutritional Problem 1. Problem Problem Altered Nutrition related labs Etiology r/t endocrine dysfunction Signs/Symptoms: aeb HX of DM Malnutrition Related to Morbid Obesity Malnutrition related to morbid obesity No Intervention/Recommendation Comments 1.Continue with CCHO, NCS, MERCEDES diet as ordered. 2.Continue on anti- hyperglycemic meds for glucose control per MD order. Expected Outcomes/Goals Expected Outcomes/Goals 1.PO intake to continue to meet 75% of nutritional needs. 2.Monitor PO intake, wt, skin integrity, and nutrition related labs to trend WNL. 3.F/U as low risk in 7 days,
--- NOTE | 2018-10-29 21:12 | Progress Notes ---
DATE: 10/29/2018 SUBJECTIVE: Chart was reviewed and the patient interviewed. Also discussed the patient's condition with the staff and reviewed records and labs. The patient was noted by the staff masturbating in his room. The patient also is still anxious and is still having episodes of being suspicious. He is not agitated and it is slightly easier to redirect him. Otherwise, the patient still needs close monitoring and still needs to continue to work on behavioral modification. He is compliant with taking medications and he denies any side effects of medications. JOB# [id number]
[2018-10-30] MEDS: INSULIN LISPRO SLIDING SCALE 100 UNITS/ML UNIT SUBQ SCH ×4 (07:10→21:40)
[2018-10-30] MEDS: Multivitamin Tab PO SCH (09:17)
--- NOTE | 2018-10-30 16:07 | Internal Medicine Prog Note ---
Internal Medicine Subjective - Subjective Service Date: 10/30/18 Patient seen and examined:: with staff Patient is:: awake, verbal, agitated Patient Complaints of:: other (Patient is in an agressive mood.) Per staff patient has:: no adverse event, no episodes of fall Internal Medicine Objective - Results Result Diagrams: 10/24/18 21:55 10/24/18 21:55 Recent Labs: Laboratory Last Values WBC 7.5 Th/cmm (4.8-10.8) 10/24/18 21:55 RBC 4.37 Mil/cmm (3.80-5.80) 10/24/18 21:55 Hgb 13.1 gm/dL (12-16) 10/24/18 21:55 Hct 39.3 % (41.0-60) L 10/24/18 21:55 MCV 90.0 fl (80-99) 10/24/18 21:55 MCH 30.0 pg (27.0-31.0) 10/24/18 21:55 MCHC Differential 33.4 pg (28.0-36.0) 10/24/18 21:55 RDW 13.2 % (11.5-20.0) 10/24/18 21:55 Plt Count 238 Th/cmm (150-400) 10/24/18 21:55 MPV 7.4 fl 10/24/18 21:55 Neutrophils % 64.0 % (40.0-80.0) 10/24/18 21:55 Lymphocytes % 26.9 % (20.0-50.0) 10/24/18 21:55 Monocytes % 5.5 % (2.0-10.0) 10/24/18 21:55 Eosinophils % 3.5 % (0.0-5.0) 10/24/18 21:55 Basophils % 0.1 % (0.0-2.0) 10/24/18 21:55 Sodium 135 mEq/L (136-145) L 10/24/18 21:55 Potassium 4.1 mEq/L (3.5-5.1) 10/24/18 21:55 Chloride 101 mEq/L (98-107) 10/24/18 21:55 Carbon Dioxide 25.7 mEq/L (21.0-31.0) 10/24/18 21:55 Anion Gap 12.4 (7.0-16.0) 10/24/18 21:55 BUN 19 mg/dL (7-25) 10/24/18 21:55 Creatinine 0.7 mg/dL (0.7-1.3) 10/24/18 21:55 Est GFR ( Amer) TNP 10/24/18 21:55 Est GFR (Non-Af Amer) TNP 10/24/18 21:55 BUN/Creatinine Ratio 27.1 10/24/18 21:55 Glucose 125 mg/dL (70-105) H 10/24/18 21:55 POC Glucose 118 MG/DL (70 - 105) H 10/30/18 06:43 Calcium 9.5 mg/dL (8.6-10.3) 10/24/18 21:55 Troponin I 0.01 ng/mL (0.01-0.05) 10/24/18 21:55 Triglycerides 158 mg/dL (<150) H 10/25/18 00:00 Cholesterol 153 mg/dL (<200) 10/25/18 00:00 LDL Cholesterol Direct 103 mg/dL (75-193) 10/25/18 00:00 HDL Cholesterol 35 mg/dL (23-92) 10/25/18 00:00 Salicylates < 25.0 mg/L (30.0-100.0) L 10/24/18 21:55 Acetaminophen < 10.0 ug/mL (10.0-30.0) L 10/24/18 21:55 Ethyl Alcohol < 10 mg/dL (0-10) 10/24/18 21:55 - Physical Exam Vitals and I&O: Vital Signs Temp 98.6 F 10/29/18 19:58 Pulse 70 10/30/18 09:16 Resp 18 10/29/18 19:58 BP 142/77 10/30/18 09:16 Pulse Ox 99 10/29/18 19:58 Intake & Output 10/29/18 10/30/18 10/30/18 18:59 06:59 18:59 Intake Total 240 Balance 240 Intake: Oral 240 Other: # Voids 2 Active Medications: Current Medications Acetaminophen (Tylenol Extra Strength) 500 mg PO Q4H PRN PRN Reason: Fever > 101 Stop: 12/24/18 06:36 Al Hydrox/Mg Hydrox/Simethicone (Maalox) 30 ml PO Q4HR PRN PRN Reason: GI DISTRESS Stop: 12/24/18 00:14 Amlodipine Besylate (Norvasc) 10 mg PO DAILY [facility] Stop: 12/24/18 08:59 Last Admin: 10/30/18 09:16 Dose: 10 mg Bisacodyl (Dulcolax 10 Mg Supp) 10 mg RC DAILY PRN PRN Reason: Constipation Stop: 12/24/18 06:36 Dextrose (Glutose 40%) 18.75 gm PO PRN PRN PRN Reason: BS Below 70 & not tolerate po Stop: 12/24/18 09:26 Last Admin: 10/28/18 21:14 Dose: 18.75 gm Famotidine (Pepcid) 20 mg PO DAILY [facility] Stop: 12/24/18 08:59 Last Admin: 10/30/18 09:17 Dose: 20 mg Glucagon (Glucagen) 1 mg IM PRN PRN PRN Reason: BS Below 70 & not tolerate po Stop: 12/24/18 09:26 Insulin Human Lispro (Humalog Insulin Sliding Scale) 0 units SUBQ ACHS [facility]; Protocol Stop: 12/24/18 11:29 Last Admin: 10/30/18 11:29 Dose: Not Given Lorazepam (Ativan) 0.5 mg PO Q4HR PRN; Protocol PRN Reason: Anxiety Stop: 11/24/18 00:14 Last Admin: 10/29/18 20:55 Dose: 0.5 mg Magnesium Hydroxide (Milk Of Magnesia) 30 ml PO HS PRN PRN Reason: Constipation Metformin HCl (Glucophage) 1,000 mg PO BID [facility] Stop: 12/24/18 08:59 Last Admin: 10/30/18 09:17 Dose: 1,000 mg Multivitamins/Vitamin C (Theragran) 1 tab PO DAILY [facility] Stop: 12/24/18 08:59 Last Admin: 10/30/18 09:17 Dose: 1 tab Sitagliptin Phosphate (Januvia) 50 mg PO DAILY [facility] Stop: 12/24/18 08:59 Last Admin: 10/30/18 09:17 Dose: 50 mg Sodium Chloride (Nacl Tab) 2 gm PO TID [facility] Stop: 12/24/18 08:59 Last Admin: 10/30/18 14:04 Dose: Not Given Tamsulosin HCl (Flomax) 0.4 mg PO BID [facility] Stop: 12/24/18 08:59 Last Admin: 10/30/18 09:18 Dose: 0.4 mg Zolpidem Tartrate (Ambien) 5 mg PO HS PRN PRN Reason: Insomnia Stop: 12/24/18 00:14 Last Admin: 10/29/18 20:55 Dose: 5 mg Physical Exam: Patient remains very agitated. General: demented HEENT: NC/AT Neck: Supple Lungs: CTAB Cardiovascular: RRR, Normal S1 Abdomen: soft, non-tender Extremities: clear Neurological: no change Internal Medicine Assmt/Plan - Assessment Assessment: Dementia. Acute Psychosis. Htn. DM. Dyslipidemia. Copd. Gerd. - Plan Plan: Continuation of care. Monitor Labs. Continue present meds as directed. Monitor vitals, continue B/P meds.. Monitor Diet/Nutritional support. Psych anagement per Psyche. Pain Management. Physical therapy. Occupational therapy. Safety precaution. Supportive care. Fall precaution, frequent nursing rounds, and as needed restraints to prevent fall. Will Monitor patient and continue present care management. Nutritional Asmnt/Malnutr-PDOC - Dietary Evaluation Malnutrition Findings (Please click <Entered> for more info): Nutritional Asmnt/Malnutrition Start: 10/26/18 14: 08 Text: Status: Complete Freq: Protocol: Document 10/26/18 14:08 ROCHELLE (Rec: 10/26/18 14:11 [email or web address]) Nutritional Asmnt/Malnutrition Patient General Information Nutritional Screening Moderate Risk Diagnosis Increased confusion Pertinent Medical Hx/Surgical Hx HTN, DM, Dyslipidemia, Asthma/ COPD, PUD/GERD, Dementia Subjective Information Pt is a 73-year-old male from senior living admitted on 10/24 c /o agitation. Pt is eating 100 % meals since admission per Meal/Nutrition Activity Record . HT: 58 WT: 142 LB (64.54 kg) BMI: 21.59 (Normal) GI: WNL, Soft, Non-Tender BM: Not noted I/O: 1350/1 (1349) Skin: WNL, Intact Vince: 16 Diet Order: CCHO, NCS, MERCEDES Estimated Energy Needs: ( Geriatric, CBW) 5288-0795 kcals (25-30 kcals/ kg) 65-77g Pro (1.0-1.2 g/kg) 9091-1372 ml (25-30 ml/kg) Pt is eating 100% of meals Per Meal/Nutrition Activity Record. Dietary is currently providing an estimated 2187 kcals and 123 gm Pro to meet 100% kcal and 100+% Pro needs. Pertinent Medications Maalox (PRN), Dulcolax (PRN), Glutose 40% (PRN), Pepcid, Glucagen (PRN), INS-SS, MOM ( PRN), Glucophage, Theragran, Nacl Tab Pertinent Labs 10/26: POC Glucose (last 24 hours) 105, 96, 108, 104, 111 10/24: Hgb/Hct 13.1/39.3 Nutritional Hx/Data Height 1.73 m Height (Calculated Centimeters) 172.7 Current Weight (lbs) 64.41 kg Weight (Calculated Kilograms) 64.4 Weight (Calculated Grams) 00783.1 [place] Body Weight 68.4 kg % [place] Body Weight 94 Body Mass Index (BMI) 21.6 Weight Status Approriate GI Symptoms GI Symptoms None Last BM Not noted Skin Integrity/Comment: WNL, Intact Vince: 16 Current %PO Good (75-100%) Estimated Nutritional Goals BEE in Kcals: Using Current wt Calories/Kcals/Kg 25-30 Kcals Calculated 7508-2100 Protein: Using Current wt Protein g/k.0-1.2 Protein Calculated 65-77 Fluid: ml 6070-8062 ml (25-30 ml/kg) Nutritional Problem 1. Problem Problem Altered Nutrition related labs Etiology r/t endocrine dysfunction Signs/Symptoms: aeb HX of DM Malnutrition Related to Morbid Obesity Malnutrition related to morbid obesity No Intervention/Recommendation Comments 1.Continue with CCHO, NCS, MERCEDES diet as ordered. 2.Continue on anti- hyperglycemic meds for glucose control per MD order. Expected Outcomes/Goals Expected Outcomes/Goals 1.PO intake to continue to meet 75% of nutritional needs. 2.Monitor PO intake, wt, skin integrity, and nutrition related labs to trend WNL. 3.F/U as low risk in 7 days,
--- NOTE | 2018-10-31 00:08 | Progress Notes ---
DATE: 10/30/2018 SUBJECTIVE: This is a 73-year-old male transferred from [place] post-acute agitation, not following directions, irritable. The patient is not the best historian, confused, rambling. It is unclear if he possibly has some dysarthria as he is not really able to verbalize anything, mostly anxious, keeps to himself, needs close monitoring, ongoing concerns that he may strike out, act out upon his impulses. Medications were noted. PLAN: We will continue to monitor. The patient is appearing confused. We will continue to monitor for any behavioral disturbances. Monitor for any medication side effects. JOB# [id number]
[2018-10-31] MEDS: INSULIN LISPRO SLIDING SCALE 100 UNITS/ML UNIT SUBQ SCH ×4 (06:41→20:23)
[2018-10-31] MEDS: Multivitamin Tab PO SCH (08:18)
--- NOTE | 2018-10-31 15:17 | Internal Medicine Prog Note ---
Internal Medicine Subjective - Subjective Service Date: 10/31/18 Patient is:: awake, verbal, agitated Patient Complaints of:: other (Patient is in an agressive mood.) Per staff patient has:: no adverse event, no episodes of fall Internal Medicine Objective - Results Result Diagrams: 10/24/18 21:55 10/24/18 21:55 Recent Labs: Laboratory Last Values WBC 7.5 Th/cmm (4.8-10.8) 10/24/18 21:55 RBC 4.37 Mil/cmm (3.80-5.80) 10/24/18 21:55 Hgb 13.1 gm/dL (12-16) 10/24/18 21:55 Hct 39.3 % (41.0-60) L 10/24/18 21:55 MCV 90.0 fl (80-99) 10/24/18 21:55 MCH 30.0 pg (27.0-31.0) 10/24/18 21:55 MCHC Differential 33.4 pg (28.0-36.0) 10/24/18 21:55 RDW 13.2 % (11.5-20.0) 10/24/18 21:55 Plt Count 238 Th/cmm (150-400) 10/24/18 21:55 MPV 7.4 fl 10/24/18 21:55 Neutrophils % 64.0 % (40.0-80.0) 10/24/18 21:55 Lymphocytes % 26.9 % (20.0-50.0) 10/24/18 21:55 Monocytes % 5.5 % (2.0-10.0) 10/24/18 21:55 Eosinophils % 3.5 % (0.0-5.0) 10/24/18 21:55 Basophils % 0.1 % (0.0-2.0) 10/24/18 21:55 Sodium 135 mEq/L (136-145) L 10/24/18 21:55 Potassium 4.1 mEq/L (3.5-5.1) 10/24/18 21:55 Chloride 101 mEq/L (98-107) 10/24/18 21:55 Carbon Dioxide 25.7 mEq/L (21.0-31.0) 10/24/18 21:55 Anion Gap 12.4 (7.0-16.0) 10/24/18 21:55 BUN 19 mg/dL (7-25) 10/24/18 21:55 Creatinine 0.7 mg/dL (0.7-1.3) 10/24/18 21:55 Est GFR ( Amer) TNP 10/24/18 21:55 Est GFR (Non-Af Amer) TNP 10/24/18 21:55 BUN/Creatinine Ratio 27.1 10/24/18 21:55 Glucose 125 mg/dL (70-105) H 10/24/18 21:55 POC Glucose 113 MG/DL (70 - 105) H 10/31/18 12:00 Calcium 9.5 mg/dL (8.6-10.3) 10/24/18 21:55 Troponin I 0.01 ng/mL (0.01-0.05) 10/24/18 21:55 Triglycerides 158 mg/dL (<150) H 10/25/18 00:00 Cholesterol 153 mg/dL (<200) 10/25/18 00:00 LDL Cholesterol Direct 103 mg/dL (75-193) 10/25/18 00:00 HDL Cholesterol 35 mg/dL (23-92) 10/25/18 00:00 Salicylates < 25.0 mg/L (30.0-100.0) L 10/24/18 21:55 Acetaminophen < 10.0 ug/mL (10.0-30.0) L 10/24/18 21:55 Ethyl Alcohol < 10 mg/dL (0-10) 10/24/18 21:55 - Physical Exam Vitals and I&O: Vital Signs Temp 98.9 F 10/31/18 14:00 Pulse 57 10/31/18 14:00 Resp 18 10/31/18 14:00 BP 122/66 10/31/18 14:00 Pulse Ox 97 10/31/18 14:00 Intake & Output 10/30/18 10/31/18 10/31/18 18:59 06:59 18:59 Other: # Bowel Movements 1 Active Medications: Current Medications Acetaminophen (Tylenol Extra Strength) 500 mg PO Q4H PRN PRN Reason: Fever > 101 Stop: 12/24/18 06:36 Al Hydrox/Mg Hydrox/Simethicone (Maalox) 30 ml PO Q4HR PRN PRN Reason: GI DISTRESS Stop: 12/24/18 00:14 Amlodipine Besylate (Norvasc) 10 mg PO DAILY [facility] Stop: 12/24/18 08:59 Last Admin: 10/31/18 08:16 Dose: 10 mg Bisacodyl (Dulcolax 10 Mg Supp) 10 mg RC DAILY PRN PRN Reason: Constipation Stop: 12/24/18 06:36 Buspirone HCl (Buspar) 5 mg PO BID [facility]; Protocol Stop: 12/30/18 08:59 Last Admin: 10/31/18 08:21 Dose: 5 mg Dextrose (Glutose 40%) 18.75 gm PO PRN PRN PRN Reason: BS Below 70 & not tolerate po Stop: 12/24/18 09:26 Last Admin: 10/28/18 21:14 Dose: 18.75 gm Famotidine (Pepcid) 20 mg PO DAILY [facility] Stop: 12/24/18 08:59 Last Admin: 10/31/18 08:17 Dose: 20 mg Glucagon (Glucagen) 1 mg IM PRN PRN PRN Reason: BS Below 70 & not tolerate po Stop: 12/24/18 09:26 Insulin Human Lispro (Humalog Insulin Sliding Scale) 0 units SUBQ ACHS [facility]; Protocol Stop: 12/24/18 11:29 Last Admin: 10/31/18 12:04 Dose: Not Given Lorazepam (Ativan) 0.5 mg PO Q4HR PRN; Protocol PRN Reason: Anxiety Stop: 11/24/18 00:14 Last Admin: 10/29/18 20:55 Dose: 0.5 mg Magnesium Hydroxide (Milk Of Magnesia) 30 ml PO HS PRN PRN Reason: Constipation Metformin HCl (Glucophage) 1,000 mg PO BID [facility] Stop: 12/24/18 08:59 Last Admin: 10/31/18 08:18 Dose: 1,000 mg Multivitamins/Vitamin C (Theragran) 1 tab PO DAILY [facility] Stop: 12/24/18 08:59 Last Admin: 10/31/18 08:18 Dose: 1 tab Sitagliptin Phosphate (Januvia) 50 mg PO DAILY [facility] Stop: 12/24/18 08:59 Last Admin: 10/31/18 08:18 Dose: 50 mg Sodium Chloride (Nacl Tab) 2 gm PO TID [facility] Stop: 12/24/18 08:59 Last Admin: 10/31/18 14:40 Dose: 2 gm Tamsulosin HCl (Flomax) 0.4 mg PO BID [facility] Stop: 12/24/18 08:59 Last Admin: 10/31/18 08:19 Dose: 0.4 mg Zolpidem Tartrate (Ambien) 5 mg PO HS PRN PRN Reason: Insomnia Stop: 12/24/18 00:14 Last Admin: 10/29/18 20:55 Dose: 5 mg General: demented HEENT: NC/AT Neck: Supple Lungs: CTAB Cardiovascular: RRR, Normal S1 Abdomen: soft, non-tender Extremities: clear Neurological: no change Internal Medicine Assmt/Plan - Assessment Assessment: Dementia. Acute Psychosis. Htn. DM. Dyslipidemia. Copd. Gerd. - Plan Plan: Continuation of care. Monitor Labs. Continue present meds as directed. Monitor vitals, continue B/P meds.. Monitor Diet/Nutritional support. Psych anagement per Psyche. Pain Management. Physical therapy. Occupational therapy. Safety precaution. Supportive care. Fall precaution, frequent nursing rounds Nutritional Asmnt/Malnutr-PDOC - Dietary Evaluation Malnutrition Findings (Please click <Entered> for more info): Nutritional Asmnt/Malnutrition Start: 10/26/18 14: 08 Text: Status: Complete Freq: Protocol: Document 10/26/18 14:08 ROCHELLE (Rec: 10/26/18 14:11 [email or web address]) Nutritional Asmnt/Malnutrition Patient General Information Nutritional Screening Moderate Risk Diagnosis Increased confusion Pertinent Medical Hx/Surgical Hx HTN, DM, Dyslipidemia, Asthma/ COPD, PUD/GERD, Dementia Subjective Information Pt is a 73-year-old male from [facility] admitted on 10/24 c /o agitation. Pt is eating 100 % meals since admission per Meal/Nutrition Activity Record . HT: 58 WT: 142 LB (64.54 kg) BMI: 21.59 (Normal) GI: WNL, Soft, Non-Tender BM: Not noted I/O: 1350/1 (1349) Skin: WNL, Intact Vince: 16 Diet Order: CCHO, NCS, MERCEDES Estimated Energy Needs: ( Geriatric, CBW) 5621-9998 kcals (25-30 kcals/ kg) 65-77g Pro (1.0-1.2 g/kg) 8519-9267 ml (25-30 ml/kg) Pt is eating 100% of meals Per Meal/Nutrition Activity Record. Dietary is currently providing an estimated 2187 kcals and 123 gm Pro to meet 100% kcal and 100+% Pro needs. Pertinent Medications Maalox (PRN), Dulcolax (PRN), Glutose 40% (PRN), Pepcid, Glucagen (PRN), INS-SS, MOM ( PRN), Glucophage, Theragran, Nacl Tab Pertinent Labs 10/26: POC Glucose (last 24 hours) 105, 96, 108, 104, 111 10/24: Hgb/Hct 13.1/39.3 Nutritional Hx/Data Height 5 ft 8 in Height (Calculated Centimeters) 172.7 Current Weight (lbs) 142 lb Weight (Calculated Kilograms) 64.4 Weight (Calculated Grams) 89811.1 [place] Body Weight 68.4 kg % [place] Body Weight 94 Body Mass Index (BMI) 21.6 Weight Status Approriate GI Symptoms GI Symptoms None Last BM Not noted Skin Integrity/Comment: WNL, Intact Vince: 16 Current %PO Good (75-100%) Estimated Nutritional Goals BEE in Kcals: Using Current wt Calories/Kcals/Kg 25-30 Kcals Calculated 3643-4207 Protein: Using Current wt Protein g/k.0-1.2 Protein Calculated 65-77 Fluid: ml 6894-7757 ml (25-30 ml/kg) Nutritional Problem 1. Problem Problem Altered Nutrition related labs Etiology r/t endocrine dysfunction Signs/Symptoms: aeb HX of DM Malnutrition Related to Morbid Obesity Malnutrition related to morbid obesity No Intervention/Recommendation Comments 1.Continue with CCHO, NCS, MERCEDES diet as ordered. 2.Continue on anti- hyperglycemic meds for glucose control per MD order. Expected Outcomes/Goals Expected Outcomes/Goals 1.PO intake to continue to meet 75% of nutritional needs. 2.Monitor PO intake, wt, skin integrity, and nutrition related labs to trend WNL. 3.F/U as low risk in 7 days,
[2018-11-01] MEDS: INSULIN LISPRO SLIDING SCALE 100 UNITS/ML UNIT SUBQ SCH ×2 (06:36→12:03)
[2018-11-01] MEDS: Multivitamin Tab PO SCH (09:58)
--- NOTE | 2018-11-01 13:59 | Internal Medicine Prog Note ---
Internal Medicine Subjective - Subjective Service Date: 11/01/18 Patient is:: awake, verbal, agitated Patient Complaints of:: other (Patient is in an agressive mood.) Per staff patient has:: no adverse event, no episodes of fall Internal Medicine Objective - Results Result Diagrams: 10/24/18 21:55 10/24/18 21:55 Recent Labs: Laboratory Last Values WBC 7.5 Th/cmm (4.8-10.8) 10/24/18 21:55 RBC 4.37 Mil/cmm (3.80-5.80) 10/24/18 21:55 Hgb 13.1 gm/dL (12-16) 10/24/18 21:55 Hct 39.3 % (41.0-60) L 10/24/18 21:55 MCV 90.0 fl (80-99) 10/24/18 21:55 MCH 30.0 pg (27.0-31.0) 10/24/18 21:55 MCHC Differential 33.4 pg (28.0-36.0) 10/24/18 21:55 RDW 13.2 % (11.5-20.0) 10/24/18 21:55 Plt Count 238 Th/cmm (150-400) 10/24/18 21:55 MPV 7.4 fl 10/24/18 21:55 Neutrophils % 64.0 % (40.0-80.0) 10/24/18 21:55 Lymphocytes % 26.9 % (20.0-50.0) 10/24/18 21:55 Monocytes % 5.5 % (2.0-10.0) 10/24/18 21:55 Eosinophils % 3.5 % (0.0-5.0) 10/24/18 21:55 Basophils % 0.1 % (0.0-2.0) 10/24/18 21:55 Sodium 135 mEq/L (136-145) L 10/24/18 21:55 Potassium 4.1 mEq/L (3.5-5.1) 10/24/18 21:55 Chloride 101 mEq/L (98-107) 10/24/18 21:55 Carbon Dioxide 25.7 mEq/L (21.0-31.0) 10/24/18 21:55 Anion Gap 12.4 (7.0-16.0) 10/24/18 21:55 BUN 19 mg/dL (7-25) 10/24/18 21:55 Creatinine 0.7 mg/dL (0.7-1.3) 10/24/18 21:55 Est GFR ( Amer) TNP 10/24/18 21:55 Est GFR (Non-Af Amer) TNP 10/24/18 21:55 BUN/Creatinine Ratio 27.1 10/24/18 21:55 Glucose 125 mg/dL (70-105) H 10/24/18 21:55 POC Glucose 116 MG/DL (70 - 105) H 11/01/18 11:58 Calcium 9.5 mg/dL (8.6-10.3) 10/24/18 21:55 Troponin I 0.01 ng/mL (0.01-0.05) 10/24/18 21:55 Triglycerides 158 mg/dL (<150) H 10/25/18 00:00 Cholesterol 153 mg/dL (<200) 10/25/18 00:00 LDL Cholesterol Direct 103 mg/dL (75-193) 10/25/18 00:00 HDL Cholesterol 35 mg/dL (23-92) 10/25/18 00:00 Salicylates < 25.0 mg/L (30.0-100.0) L 10/24/18 21:55 Acetaminophen < 10.0 ug/mL (10.0-30.0) L 10/24/18 21:55 Ethyl Alcohol < 10 mg/dL (0-10) 10/24/18 21:55 - Physical Exam Vitals and I&O: Vital Signs Temp 98.5 F 10/31/18 21:07 Pulse 57 11/01/18 10:02 Resp 20 10/31/18 21:07 BP 132/67 11/01/18 10:02 Pulse Ox 98 10/31/18 21:07 Intake & Output 10/31/18 11/01/18 11/01/18 18:59 06:59 18:59 Intake Total 120 Balance 120 Intake: Oral 120 Other: # Voids 2 # Bowel Movements 1 0 Active Medications: Current Medications Acetaminophen (Tylenol Extra Strength) 500 mg PO Q4H PRN PRN Reason: Fever > 101 Stop: 12/24/18 06:36 Al Hydrox/Mg Hydrox/Simethicone (Maalox) 30 ml PO Q4HR PRN PRN Reason: GI DISTRESS Stop: 12/24/18 00:14 Amlodipine Besylate (Norvasc) 10 mg PO DAILY [facility] Stop: 12/24/18 08:59 Last Admin: 11/01/18 10:02 Dose: Not Given Bisacodyl (Dulcolax 10 Mg Supp) 10 mg RC DAILY PRN PRN Reason: Constipation Stop: 12/24/18 06:36 Buspirone HCl (Buspar) 5 mg PO BID [facility]; Protocol Stop: 12/30/18 08:59 Last Admin: 11/01/18 10:01 Dose: 5 mg Dextrose (Glutose 40%) 18.75 gm PO PRN PRN PRN Reason: BS Below 70 & not tolerate po Stop: 12/24/18 09:26 Last Admin: 10/28/18 21:14 Dose: 18.75 gm Famotidine (Pepcid) 20 mg PO DAILY [facility] Stop: 12/24/18 08:59 Last Admin: 11/01/18 10:01 Dose: 20 mg Glucagon (Glucagen) 1 mg IM PRN PRN PRN Reason: BS Below 70 & not tolerate po Stop: 12/24/18 09:26 Insulin Human Lispro (Humalog Insulin Sliding Scale) 0 units SUBQ ACHS [facility]; Protocol Stop: 12/24/18 11:29 Last Admin: 11/01/18 12:03 Dose: Not Given Lorazepam (Ativan) 0.5 mg PO Q4HR PRN; Protocol PRN Reason: Anxiety Stop: 11/24/18 00:14 Last Admin: 10/29/18 20:55 Dose: 0.5 mg Magnesium Hydroxide (Milk Of Magnesia) 30 ml PO HS PRN PRN Reason: Constipation Metformin HCl (Glucophage) 1,000 mg PO BID [facility] Stop: 12/24/18 08:59 Last Admin: 11/01/18 10:01 Dose: 1,000 mg Multivitamins/Vitamin C (Theragran) 1 tab PO DAILY [facility] Stop: 12/24/18 08:59 Last Admin: 11/01/18 09:58 Dose: 1 tab Sitagliptin Phosphate (Januvia) 50 mg PO DAILY [facility] Stop: 12/24/18 08:59 Last Admin: 11/01/18 09:58 Dose: 50 mg Sodium Chloride (Nacl Tab) 2 gm PO TID [facility] Stop: 12/24/18 08:59 Last Admin: 11/01/18 10:01 Dose: 2 gm Tamsulosin HCl (Flomax) 0.4 mg PO BID [facility] Stop: 12/24/18 08:59 Last Admin: 11/01/18 09:58 Dose: 0.4 mg Zolpidem Tartrate (Ambien) 5 mg PO HS PRN PRN Reason: Insomnia Stop: 12/24/18 00:14 Last Admin: 10/29/18 20:55 Dose: 5 mg General: demented HEENT: NC/AT Neck: Supple Lungs: CTAB Cardiovascular: RRR, Normal S1 Abdomen: soft, non-tender Extremities: clear Neurological: no change Internal Medicine Assmt/Plan - Assessment Assessment: Dementia. Acute Psychosis. Htn. DM. Dyslipidemia. Copd. Gerd. - Plan Plan: Continuation of care. Monitor Labs. Continue present meds as directed. Monitor vitals, continue B/P meds.. Monitor Diet/Nutritional support. Psych anagement per Psyche. Pain Management. Physical therapy. Occupational therapy. Safety precaution. Supportive care. Fall precaution, frequent nursing rounds Nutritional Asmnt/Malnutr-PDOC - Dietary Evaluation Malnutrition Findings (Please click <Entered> for more info): Nutritional Asmnt/Malnutrition Start: 10/26/18 14: 08 Text: Status: Complete Freq: Protocol: Document 10/26/18 14:08 ROCHELLE (Rec: 10/26/18 14:11 ROCHELLE [email or web address]) Nutritional Asmnt/Malnutrition Patient General Information Nutritional Screening Moderate Risk Diagnosis Increased confusion Pertinent Medical Hx/Surgical Hx HTN, DM, Dyslipidemia, Asthma/ COPD, PUD/GERD, Dementia Subjective Information Pt is a 73-year-old male from [facility] admitted on 10/24 c /o agitation. Pt is eating 100 % meals since admission per Meal/Nutrition Activity Record . HT: 58 WT: 142 LB (64.54 kg) BMI: 21.59 (Normal) GI: WNL, Soft, Non-Tender BM: Not noted I/O: 1350/1 (1349) Skin: WNL, Intact Vince: 16 Diet Order: CCHO, NCS, MERCEDES Estimated Energy Needs: ( Geriatric, CBW) 9511-0851 kcals (25-30 kcals/ kg) 65-77g Pro (1.0-1.2 g/kg) 3573-1756 ml (25-30 ml/kg) Pt is eating 100% of meals Per Meal/Nutrition Activity Record. Dietary is currently providing an estimated 2187 kcals and 123 gm Pro to meet 100% kcal and 100+% Pro needs. Pertinent Medications Maalox (PRN), Dulcolax (PRN), Glutose 40% (PRN), Pepcid, Glucagen (PRN), INS-SS, MOM ( PRN), Glucophage, Theragran, Nacl Tab Pertinent Labs 10/26: POC Glucose (last 24 hours) 105, 96, 108, 104, 111 10/24: Hgb/Hct 13.1/39.3 Nutritional Hx/Data Height 5 ft 8 in Height (Calculated Centimeters) 172.7 Current Weight (lbs) 142 lb Weight (Calculated Kilograms) 64.4 Weight (Calculated Grams) 46660.1 [place] Body Weight 68.4 kg % [place] Body Weight 94 Body Mass Index (BMI) 21.6 Weight Status Approriate GI Symptoms GI Symptoms None Last BM Not noted Skin Integrity/Comment: WNL, Intact Vince: 16 Current %PO Good (75-100%) Estimated Nutritional Goals BEE in Kcals: Using Current wt Calories/Kcals/Kg 25-30 Kcals Calculated 0106-8689 Protein: Using Current wt Protein g/k.0-1.2 Protein Calculated 65-77 Fluid: ml 7691-2046 ml (25-30 ml/kg) Nutritional Problem 1. Problem Problem Altered Nutrition related labs Etiology r/t endocrine dysfunction Signs/Symptoms: aeb HX of DM Malnutrition Related to Morbid Obesity Malnutrition related to morbid obesity No Intervention/Recommendation Comments 1.Continue with CCHO, NCS, MERCEDES diet as ordered. 2.Continue on anti- hyperglycemic meds for glucose control per MD order. Expected Outcomes/Goals Expected Outcomes/Goals 1.PO intake to continue to meet 75% of nutritional needs. 2.Monitor PO intake, wt, skin integrity, and nutrition related labs to trend WNL. 3.F/U as low risk in 7 days,
--- NOTE | 2018-11-01 20:28 | Progress Notes ---
DATE: SUBJECTIVE: Chart reviewed and the patient interviewed. Also discussed the patient's condition with the staff and reviewed records and labs. The patient continued to be confused and impulsive and also exhibiting unpredictable behavior. On the other hand, the patient seems to be calmer and seems to be less agitated and less irritable. The patient also is still isolative and interacting minimally with others. The patient also is continued to comply with taking his medications and the patient is agreeable to take medications to help him with his anxiety, but he is compliant with taking his other medications for medical reasons. ASSESSMENT: The patient is still severely anxious and needs close monitoring. TREATMENT PLAN: We will start the patient on BuSpar 5 mg twice a day. Also, we will continue to work on his unpredictable behavior and his severe level of anxiety and continue to follow up. Also discussed with hospice case manager discharge plans. [facility]# [id number]
--- NOTE | 2018-11-02 00:32 | Discharge Summary ---
DATE OF DISCHARGE: 11/01/2018 AGE: 73 FINAL DIAGNOSIS/PRIMARY DIAGNOSIS: Unspecified psychosis. SECONDARY DIAGNOSES: Dementia, moderate to severe, with psychotic features and behavioral disturbances. MEDICAL DIAGNOSES: 1. Diabetes mellitus. 2. Hypertension 3. Chronic obstructive pulmonary disease. 4. Gastroesophageal reflux disease. REASON FOR HOSPITALIZATION: The patient was admitted to the hospital because of increased agitation and the patient also was not able to follow directions. HOSPITAL COURSE: The patient continued to be agitated and restless. The patient also was in irritable mood. The patient was given Ativan on a p.r.n. basis and also was given BuSpar 5 mg twice a day because of increased anxiety. Gradually, the patient's affect was brighter. He was less agitated. Also less anxious. The patient denied any suicidal or homicidal ideations and the patient was returned back to the [facility]. Physical exam of the patient was basically normal and the patient has no major medical problems. AFTER DISCHARGE PLANS: The patient returned to [facility] with plans for outpatient there. EXPECTED OUTCOME AFTER DISCHARGE: Fair if the patient continues his treatment and continued to take his medication. [facility]# [id number]
== END 2018-11-01 14:30 | DRG 885 ==
LOC: ER 21:25 → GERO2 22:53 → GERO 10-31 17:30
PROVIDERS: ADMIT Psychiatry & Neurology Psychiatry; ATTEND Psychiatry & Neurology Psychiatry
DX: F23 Brief psychotic disorder (principal); F03.91 Unspecified dementia, unspecified severity, with behavioral disturbance; G81.94 Hemiplegia, unspecified affecting left nondominant side; E11.9 Type 2 diabetes mellitus without complications; I10 Essential (primary) hypertension; J44.9 Chronic obstructive pulmonary disease, unspecified; K21.9 Gastro-esophageal reflux disease without esophagitis; E78.5 Hyperlipidemia, unspecified; Z86.73 Personal history of transient ischemic attack (TIA), and cerebral infarction without residual deficits
CPT/HCPCS: 36415-UA; 80048-TC; 80061-TC; 80320-TC; 80329-TC; 82948-90; 83036-90; 84484-TC; 85025-TC; 93005; Z7610